=== PATIENT | female | born 1980 | race Caucasian/White ===

== ENCOUNTER 2019-01-13 13:32 | Emergency (ER) | payer OTHER ==
[~2019-01-13] VITALS: Ht 165.1 cm; Wt 74.8 kg
[~2019-01-13 13:32] MED LIST: VISTARIL25 MG PO
[2019-01-13] MEDS ORDERED: CLONAZEPAM0.5 M1 (14:06)
== END 2019-01-13 20:07 | disposition home or self-care (01) ==
LOC: ER 13:32 → EDBD 14:40 → ER 14:40
DX: N92.1 Excessive and frequent menstruation with irregular cycle (principal); N83.202 Unspecified ovarian cyst, left side; N83.201 Unspecified ovarian cyst, right side; D25.9 Leiomyoma of uterus, unspecified